=== PATIENT | male | born 1945 | race Caucasian/White ===

== ENCOUNTER 2016-10-25 16:11 | Inpatient (IN) | payer MEDICARE ==
--- NOTE | ~2016-10-25 | HP ---
History And Physical [id number] [place]. [address] NAME: ESTHER SOLIS : 43 STATUS : ADM IN [facility]#: [id number] AGE: 71 ADM/REG DATE : 10/25/16 MR#: [id number] REPORT SERV DATE: 10/25/16 DICTATED BY: CHANCE HERNANDEZ DATE: 10/25/16 REPORT STATUS : Draft TRANSCRIBED BY: MODL DATE: 10/25/16 DATE OF ADMISSION: 10/25/2016 REASON FOR ADMISSION: Acute myocardial infarction. HISTORY OF PRESENT ILLNESS: Mr. Solis is a 71-year-old male who presented to [facility] ED with a chief complaint of chest discomfort that started at 9 a.m. and was noted to have an EKG suggestive of evolving anterior WA. Code STEMI was activated and the case was briefly discussed with the ER physician. Based on the clinical description of the EKG and the patient's presentation, we decided to send the patient to the orthodontic lab technician emergently for cardiac catheterization. I briefly met the patient, examined him on the table prior to the procedure. He reports 4/10 chest pain. He has no history of cardiovascular disease and does not receive regular medical care. He reports question chest pain since 9 a.m. this morning, waxing and waning, progressive over the course of the day prompting to seek evaluation. PAST MEDICAL HISTORY: Denies prior hospitalizations or surgeries. SOCIAL HISTORY: Does smoke tobacco. MEDICATIONS: Denies. ALLERGIES: DENIES. FAMILY HISTORY: Noncontributory. SOCIAL HISTORY: The patient smokes. He denies alcohol or illicits. REVIEW OF SYSTEMS: Per HPI. Otherwise, negative. PHYSICAL EXAMINATION: VITAL SIGNS: Heart rate in the 80s, blood pressure upon arrival 150/80, temperature 97.8. GENERAL: Thin male, in no apparent distress. Speech is nonlabored. HEENT: Sclerae anicteric. Mucous members are moist. NECK: Supple. CARDIOVASCULAR: Tachycardic. No murmurs are present. PULMONARY: Clear to auscultation bilaterally. ABDOMEN: Soft, nondistended, nontender. EXTREMITIES: Warm no edema. LABS: Pending at the time of dictation. EKG demonstrates sinus rhythm, rate 63, ST elevations in V2 through V4. V3 is in excess of [address] depressions inferiorly. No prior EKG for comparison. History And Physical [address] [address] NAME: ESTHER SOLIS : 43 STATUS : ADM IN PAT#: [id number] AGE: 71 ADM/REG DATE : 10/25/16 MR#: [id number] REPORT SERV DATE: 10/25/16 DICTATED BY: CHANCE HERNANDEZ DATE: 10/25/16 REPORT STATUS : Draft TRANSCRIBED BY: SATURNINO DATE: 10/25/16 IMPRESSION/RECOMMENDATIONS: Acute anterior myocardial infarction: The patient will undergo emergent cardiac catheterization. I briefly discussed the risks, benefits, and alternatives and he understands these and agrees to proceed. We will perform this via the femoral approach. Further recommendations forthcoming pending initial clinical course. TIARRA/SATURNINO Chance Hernandez MD / [id number] CC: Chance Hernandez MD
--- NOTE | ~2016-10-25 | CN ---
Consultation Report [facility] [address] [place]. [address] NAME: ESTHER SOLIS : 43 STATUS : ADM IN [facility]#: [id number] AGE: 71 ADM/REG DATE : 10/25/16 MR#: [id number] REPORT SERV DATE: 10/26/16 DICTATED BY: SOL BERG DATE: 10/26/16 REPORT STATUS : Draft TRANSCRIBED BY: MODL DATE: 10/26/16 NEUROLOGICAL CONSULTATION-CODE STROKE DATE OF CONSULTATION: 10/26/2016 Critical care total time 90 minutes. HISTORY OF PRESENT ILLNESS: This is a 71-year-old white male. The patient in the CCU bed 1 who suffered respiratory arrest. Code stroke was called since the patient prior to having respiratory difficulty was lethargic and confused. The patient was noted to have systolic blood pressure of 80 and 90 and having episodes of sudden apnea and becoming cyanotic. Code blue was called. The patient apparently never lost his pulse as a part of code blue response. He was intubated by Dr. Cruz. A 16-gauge left external jugular IV line was inserted. The patient was observed by me during the intubation process. The patient was moving all 4 extremity and was attempting to resist nurses trying to calm him down and restrain him. The patient's lower systolic blood pressure was 84. PAST MEDICAL HISTORY: Significant for history of STEMI, which occurred yesterday. The patient had a cardiac catheterization yesterday. SOCIAL HISTORY: The patient has history of chronic tobacco abuse. There is no evidence of alcohol abuse at this time. FAMILY HISTORY: Could not be obtained from the patient since he was unresponsive. No information was present in the patient's chart. ALLERGIES: NO KNOWN ALLERGIES. REVIEW OF SYSTEMS: This could not be performed in view of the patient's altered mental status and sedation for intubation. PHYSICAL EXAMINATION: GENERAL: General physical examination prior to intubation showed him to be thin but not emaciated, was in acute distress during the process of intubation. The patient was sedated and intubated, was taken to the CT scanner. During the CT scanning, the patient's blood pressure was 85 systolic. His Levophed infusion was increased so were his IV fluids. CT scan of the head showed no evidence of acute changes. A small amount of mild microvascular changes was observed. CTA of the neck and brain showed no evidence of significant occlusive disease or clots. CTA of the chest was performed to rule out pulmonary embolism which was negative. A comment was made by Dr. Lawler from Radiology about the aortic arch being slightly enlarged (?) borderline aneurysmal. The patients oxygen saturation was 100% at the time of scanning. HEENT: The patient was normocephalic, did not show signs of trauma. Pupils were small, equal, reactive to light at the time of his intubation. The neck showed no evidence of significant abnormalities except for slightly dilated jugular veins. Consultation Report [facility] [address] [facility] [place]. [address] NAME: ESTHER SOLIS : 43 STATUS : ADM IN [facility]#: [id number] AGE: 71 ADM/REG DATE : 10/25/16 MR#: [id number] REPORT SERV DATE: 10/26/16 DICTATED BY: SOL BERG DATE: 10/26/16 REPORT STATUS : Draft TRANSCRIBED BY: SATURNINO DATE: 10/26/16 Neurological exam was difficult to perform since the patient was sedated with propofol. Prior to intubation, the patient was moving all four extremities. NIH scale on this patient was difficult to perform in view of sedation, although patient has an increased risk for cerebrovascular accident in view of his coronary artery disease, at this time, it appears that the patient's episode was triggered by cardiopulmonary causes. No acute abnormalities were noted on CT scan. Neurology will follow the patient alongside Cardiology and intensive care providers. IMPRESSION: Cardiopulmonary arrest, status post STEMI, cardiovascular disease. At present, no evidence of acute hemorrhagic infarction, however, could not rule out an acute stroke. Recommend to follow stroke orders in addition to STEMI orders. Maintain blood pressure at 141/50 systolic range. Avoid precipitous drops in systolic blood pressure below 110 level if patient is normally normotensive. If the patient's baseline suggest higher blood pressure, would try to maintain the patient's systolic blood pressure and 141/60 systolic range. Continue aspirin and Plavix. DVT prophylaxis. MRI and MRA of the brain extubated. Evaluate stroke risk factors. Continue stroke education for the patient and family once patient is more alert. Thank you for allowing us to participate in this patient's care. JAMES/SATURNINO Sol Berg MD / [id number] CC: Chance Hernandez MD
--- NOTE | ~2016-10-25 | DS ---
Discharge Summary [facility] [address] [place]. [address] NAME: ESTHER SOLIS : 43 STATUS : DIS IN PAT#: [id number] AGE: 71 ADM/REG DATE : 10/25/16 MR#: [id number] REPORT SERV DATE: 11/10/16 DICTATED BY: CHANCE HERNANDEZ DATE: 11/10/16 REPORT STATUS : Draft TRANSCRIBED BY: STAURNINO DATE: 11/10/16 Data Collection from hospitalization DISCHARGE DIAGNOSES: 1. ST-elevation myocardial infarction - acute. 2. Heart failure - systolic - acute/chronic. 3. Coronary artery disease. 4. Tobacco use. CONSULTATIONS: 1. Aye Cruz MD. 2. Sol Berg MD. 3. GABRIELE Luna. PROCEDURES PERFORMED: 1. Cardiac catheterization and percutaneous coronary intervention on 10/25/2016. 2. Intubation on 10/26/2016. 3. Head CT - stroke protocol on 10/26/2016. 4. CTA of the neck/brain stroke protocol, CTA of the chest on 10/26/2016. MEDICATIONS: Aspirin 81 mg daily, Lipitor 40 mg at bedtime, Coreg 3.125 mg twice a day, Habitrol 21 mg topically daily, nitroglycerin 0.4 mg sublingually as needed, Protonix 40 mg before breakfast and supper, and Brilinta 90 mg twice a day. CONDITION AT DISCHARGE: Stable. DISPOSITION: The patient was discharged home to be followed by home health care on a low- sodium, low-cholesterol, cardiac diet with activities as instructed. He would follow up with me on 12/09/2016 and would follow up with the GI physician as instructed. He would follow up with his primary care provider on 11/18/2016. HOSPITAL COURSE: This is a 71-year-old man who presented to the [facility] Emergency Department with chief complaint of chest discomfort that started at 9:00 a.m. and was found to have an EKG suggestive of evolving anterior myocardial infarction. Code STEMI was activated and the case was briefly discussed with the emergency room physician. Based on the clinical description of the EKG and the patient's presentation, it was felt that the patient would need to undergo emergent cardiac catheterization. He was felt to have had an acute myocardial infarction. He was admitted to the hospital for further evaluation and treatment. Upon admission, he was taken to the cardiac lab tester where he underwent the above-mentioned procedure. He tolerated this well, and there were no complications. The following day, the patient was seen by Dr. Aye Cruz regarding acute hypoxemic respiratory failure. He had been observed by the nurse to become more lethargic with an altered mental status. He was somewhat apneic. A Code Blue was called, although it sounds like he never actually lost his pulse, and as part of the Code Blue Response, he was intubated and a 16-gauge left external jugular intravenous line was inserted. He was somewhat groggy prior to intubation, but was moving all four extremities. He was attempting to resist the nurses restraining him. His Discharge Summary [address] [address] NAME: ESTHER SOLIS : 43 STATUS : DIS IN PAT#: [id number] AGE: 71 ADM/REG DATE : 10/25/16 MR#: [id number] REPORT SERV DATE: 11/10/16 DICTATED BY: CHANCE HERNANDEZ DATE: 11/10/16 REPORT STATUS : Draft TRANSCRIBED BY: SATURNINO DATE: 11/10/16 lowest blood pressure was [address] Cruz's examination. Dr. Cruz was asked to assist with management of his respiratory failure. Troponin on admission was 17 and increased to 127 following the code event. His chest x-ray showed no focal consolidations or effusions. His endotracheal tube was slightly high and was advanced 3 cm after review of the film. KUB showed a renal stone that was small and the NG tube with tip just below the GE junction. This was advanced 10 to 15 cm following review of the film. EKG showed ST changes consistent with those on the day of admission. He was going to be assessed for aortic dissection or pulmonary embolus. Head CT - stroke protocol was performed as well as a CTA of the neck/brain and CTA of the chest. The patient was also seen by Dr. Sol Berg. At present, there was no evidence of acute hemorrhagic infarction, however, we could not rule out an acute stroke. It was recommended that stroke orders be followed in addition to STEMI orders. We would try to maintain blood pressure in the 141/50 systolic range and avoid precipitous drops in systolic blood pressure below 110 level if the patient is normally normotensive. If the patient's baseline suggest higher blood pressure, we would try to maintain the patient's systolic blood pressure around 141/60 systolic range. Aspirin and Plavix were continued for DVT prophylaxis. Stroke education would be continued for the patient and his family once he was more alert. Coreg was increased. Repeat echocardiogram was performed. On 10/27/2016, chest x-ray showed no airspace disease. Coreg and DARLEEN inhibitor were stopped. Jaylan-Synephrine was going to be weaned as tolerated. Diuresis would be performed as needed. Left ventricular ejection fraction was 35%. The CT and CTA were negative. On 10/28/2016, the patient has failed his breathing trial the day previously. His lungs were clear. Levophed drip was going to be added. Later that morning, he was extubated. White count was now 19.5. Nasal O2 was being weaned. We would deescalate his antibiotics treatment rapidly if his cultures remained negative. He was evaluated by Physical Therapy. He remained successfully extubated. He was improving clinically. He was still on Jaylan- Synephrine. Blood pressure remained borderline. He had no complaints. He was evaluated by Occupational Therapy. On 10/30/2016, he had some sundowning and agitation. Low-dose beta-darryl was started. He had three bloody stools. He had decreased H and H. His blood pressure remained stable. IV proton pump inhibitor continued. Brilinta was continued. He was seen on 10/31/2016 by Stevenson Chong for evaluation and management of acute GI bleeding. The onset was around 2:00 a.m. He stood up to go to the restroom and had passage of bright red blood in the floor. The patient's daughter said this happened on two other occasions, the last time being 6:00 a.m. On admission, his hemoglobin level was 16.1 and it was now 11.2. He had received no blood transfusions. Creatinine was 1.13. Rectal exam revealed some old dried blood around the anus, however, no stool or blood in the rectal vault. He had no external or internal hemorrhoids palpated. He has never had any EGD or colonoscopy. He is a thin frail man which the daughter states he has been for all of his life. Other than heartburn and indigestion prior to his myocardial infarction, he has had no GI complaints of dysphagia, odynophagia, weight loss, melena, or hematochezia. There were presently no plans to perform EGD or colonoscopy at this time. If he were to bleed again, we would send for a stat tagged red blood cell scan with embolization. If positive, we would monitor his H and H. At the present time, he cannot be taken off his Brilinta nor his aspirin secondary to the risk of stent thrombosis. His daughter denies him to ever taking any NSAIDs products. Discharge Summary [facility] [address] [facility] [place]. [address] NAME: ESTHER SOLIS : 43 STATUS : DIS IN PAT#: [id number] AGE: 71 ADM/REG DATE : 10/25/16 MR#: [id number] REPORT SERV DATE: 11/10/16 DICTATED BY: CHANCE HERNANDEZ DATE: 11/10/16 REPORT STATUS : Draft TRANSCRIBED BY: SATURNINO DATE: 11/10/16 Proton pump inhibitor was continued as well as Anusol. He would be transfused as needed. On 11/01/2016, he passed a couple of more bloody bowel movements overnight, but the family refused to let him go to Radiology for tagged scan secondary to the patient receiving "dye" - i.e., radioactive material to tag his red blood cells. A long discussion was held with the patient's daughter regarding the tagged scan for continued bleeding. It was explained to the patient's daughter that the tagged scan was his best option to localize the source of bleeding. She seems to think the bleeding is over and he would not need it, but seems to be agreeable at the present time for a tagged scan if needed. The following day, he had no bleeding. His daughter said he had a normal bowel movement. He was changed to oral proton pump inhibitor. He was transfused one unit of blood. Discharge planning was performed. H and H remained stable. On 11/03/2016, he said he felt well. He had no bloody bowel movements. He had been restless at night. Discharge instructions were given. Due to his improved and stable condition, he was discharged home to be followed by home health care with the above-stated instructions. Information collected by: Shagufta Carrera I submit the above information as my discharge summary. AYAH/OSWALDOL Chance Hernandez MD / [id number] CC: Chance Hernandez MD Stevenson GABRIELE Chong
--- NOTE | ~2016-10-25 | CN ---
Consultation Report [facility] [address] [place]. [address] NAME: ESTHER SOLIS : 43 STATUS : ADM IN PAT#: [id number] AGE: 71 ADM/REG DATE : 10/25/16 MR#: [id number] REPORT SERV DATE: 10/31/16 DICTATED BY: JANET GARRETT DATE: 10/31/16 REPORT STATUS : Draft TRANSCRIBED BY: MODRafa DATE: 10/31/16 GI CONSULTATION DATE OF CONSULTATION: 10/31/2016 REASON FOR CONSULTATION: Evaluation and management of acute GI bleeding. HISTORY OF PRESENT ILLNESS: Mr. Solis is a 71-year-old male patient, who presented to [facility] on 08/24/2016 with a chief complaint of chest discomfort as well as nausea vomiting. The patient's daughter, who is present at the bedside states that his symptoms began on 10/23/2016 with indigestion type symptoms. When he began to have nausea and vomiting, which is typical for him, she brought in to [facility] for further evaluation. He was found to have EKG suggesting an anterior myocardial infarction. He underwent a code STEMI. He went to the laboratory equipment installer. He underwent PCI with drug-eluting stents placed x2 and has been on a regimen of Brilinta and aspirin since that time. He did suffer with acute hypoxemic respiratory failure, was on the ventilator for a period of time. He also suffered with altered mental status, toxic, metabolic, with stroke workup being negative. We were consulted to see him today secondary to GI bleeding, symptom onset was this morning around 2 a.m. per the daughter. He stood up to go to the restroom and had passage of bright red blood in the floor. She states that this happened on two other occasions, the last time being 6 o'clock this morning. Hemoglobin on admission was 16.1, presently it is 11.2. He has received no blood transfusions. His BUN is 17 with a creatinine of 1.13. Rectal exam done by myself with the daughter at the bedside revealed some old dried blood around the anus, however, no stool or blood in the rectal vault. No external or internal hemorrhoids were palpated. He has no pertinent GI history. He has never had an EGD or colonoscopy. He is a thin and frail man, which the daughter states he has been for all of his life. Other than the heartburn and indigestion that he experienced prior to his [place], he has had no GI complaints of dysphagia, odynophagia, weight loss, melena, or hematochezia. I have discussed with them. Presently, no plans to perform EGD or colonoscopy. If he bleeds again, we will send for a stat tagged red blood cell scan with embolization. If positive, we will monitor his H and H. At present, he cannot be taken off his Brilinta nor his aspirin secondary to risk of stent thrombosis. The patient's daughter denies him ever taking any NSAID products. PAST MEDICAL HISTORY: Positive for STEMI, tobacco abuse since the age of [age] years old. No other medical history per the daughter or per the patient. SOCIAL HISTORY: Positive tobacco. Roughly a pack per day for the last 60 years. No illicit drugs. No alcohol use. FAMILY HISTORY: Noncontributory from a GI standpoint. ALLERGIES: HE HAS NO KNOWN ALLERGIES. Consultation Report [address] [place]. [address] NAME: ESTHER SOLIS : 43 STATUS : ADM IN PAT#: [id number] AGE: 71 ADM/REG DATE : 10/25/16 MR#: [id number] REPORT SERV DATE: 10/31/16 DICTATED BY: JANET GARRETT DATE: 10/31/16 REPORT STATUS : Draft TRANSCRIBED BY: SATURNINO DATE: 10/31/16 HOME MEDICATIONS: On admission were negative. He denies any. REVIEW OF SYSTEMS: A 10-point review of systems was obtained. Pertinent positives addressed in the history of present illness. PERTINENT LABORATORY DATA: Sodium 139, potassium 4.2, BUN 17, creatinine 1.33. White count 6.2, hemoglobin 11.2, hematocrit 32.3, and platelet count of 180. INR of 1.2. PHYSICAL EXAMINATION: VITAL SIGNS: Temperature 97.8, pulse 84, respirations 18, blood pressure 102/72. NEUROLOGIC: Reveals an alert, slow to answer but answers appropriately to all questions asked. male, resting in bed. GENERAL: He is cooperative. He is in no apparent distress. He is awake and oriented. He is thin framed. NECK: No JVD. No palpable nodes. SKIN: Warm, dry, and intact. LUNGS: Diminished and coarse with normal respiratory effort exhibited. CARDIOVASCULAR SYSTEM: Regular rate and rhythm. ABDOMEN: Soft, flat, nontender. Active bowel sounds in all four quadrants. EXTREMITIES: No edema. Normal distal pulses. SKIN: Warm, dry, and intact. RECTAL EXAM: Dry blood around the anus. No blood or stool in the rectal vault. No internal or external hemorrhoids palpated. Palpable rectal mass not felt. ASSESSMENT: 1. Acute lower GI bleeding. Question if this is diverticular in nature. He has had three past history of bright red blood between the hours of 2 a.m. and 6 a.m. on 10/31/2016. 2. Status post acute anterior ST segment elevation myocardial infarction, status post drug- eluting stent x2, on Brilinta and aspirin. 3. Ischemic cardiomyopathy with ejection fraction of 35%. 4. Status post acute hypoxic respiratory failure, ventilator dependent for a period of time. PLAN: 1. PPI. 2. Anusol. 3. Monitor H and H, transfuse if needed. 4. Red blood cells tagged scan with embolization/treatment. If positive, we will follow. DG/MODL [place] Consultation Report [address] [place]. [address] NAME: ESTHER SOLIS : 43 STATUS : ADM IN [facility]#: [id number] AGE: 71 ADM/REG DATE : 10/25/16 MR#: [id number] REPORT SERV DATE: 10/31/16 DICTATED BY: JANET GARRETT DATE: 10/31/16 REPORT STATUS : Draft TRANSCRIBED BY: MODL DATE: 10/31/16 GABRIELE Chong / [id number] CC: Chance Hernandez MD
--- NOTE | ~2016-10-25 | OP ---
Record Of Operation [facility] [address] [place]. [address] NAME: ESTHER SOLIS : 43 STATUS : ADM IN [facility]#: [id number] AGE: 71 ADM/REG DATE : 10/25/16 MR#: [id number] REPORT SERV DATE: 10/26/16 DICTATED BY: CHRISTINA GONZALES DATE: 10/26/16 REPORT STATUS : Draft TRANSCRIBED BY: MODL DATE: 10/26/16 DATE OF PROCEDURE: 10/26/2016 REPORT TITLE: Intubation Note BODY AFTER REPORT TITLE: REASON FOR INTUBATION: Apnea and hypoxemic respiratory failure. PROCEDURE IN DETAIL: During code blue, Mr. Solis was intubated. A #3 MAC blade was used, and he was premedicated with 20 mg of etomidate, 50 mg of rocuronium, 5 mL of propofol and subsequently a #8 ET tube was passed into his vocal cords under direct visualization with cricoid pressure being applied. Following insertion of the endotracheal tube, there was satisfactory color change on the CO2 detector with condensation in the tube with bagging, bilateral breath sounds, and absent breath sounds over the fundus of the stomach. A followup chest x-ray, tube above the level of [place]. An OG tube was also inserted and advanced slightly after review of the chest x-ray. DELMER/SATURNINO Christina Gonzales MD / [id number] CC: Chance Hernandez MD
--- NOTE | ~2016-10-25 | CN ---
Consultation Report [facility] [address] [place]. [address] NAME: ESTHER SOLIS : [birth year] STATUS : ADM IN [facility]#: [id number] AGE: 71 ADM/REG DATE : 10/25/16 MR#: [id number] REPORT SERV DATE: 10/26/16 DICTATED BY: CHRISTINA GONZALES DATE: 10/26/16 REPORT STATUS : Draft TRANSCRIBED BY: MODL DATE: 10/26/16 PULMONARY AND CRITICAL CARE CONSULTATION DATE OF CONSULTATION: 10/26/2016 REASON FOR CONSULTATION: Acute hypoxemic respiratory failure. HISTORY OF PRESENT ILLNESS: Mr. Solis is a 71-year-old gentleman, admitted to Dr. Hernandez from [facility] as a STEMI. He has been in CCU bed 1 after having a left heart catheterization. He was observed by his nurse to become more lethargic with altered mental status, and he was also noted to be somewhat apneic. A code blue was called, although it sounds like he never actually lost his pulse and as part of the code blue response, he was intubated and a 16- gauge left external jugular intravenous line was inserted. He was somewhat groggy prior to intubation, but was moving all four extremities and is attempting to resist the nurses restraining him. His lowest blood pressure was 84 systolic on my examination. We have been asked to assist with management of his respiratory failure and to sort out what took place. PAST MEDICAL HISTORY: STEMI yesterday and tobacco abuse. Otherwise, he denies prior hospitalizations or surgeries according to his previous records. SOCIAL HISTORY: He does smoke tobacco. No additional social history is available at this time. FAMILY HISTORY: Noncontributory. ALLERGIES: NONE. HOME MEDICATIONS: None. REVIEW OF SYSTEMS: Limited due to the fact that the patient was intubated and no family was available. PHYSICAL EXAMINATION: GENERAL: A thin gentleman, in acute respiratory distress prior to intubation. VITAL SIGNS: Blood pressure is 85 systolic, heart rate was 88, afebrile, oxygen saturation was 100% with supplemental oxygen 100% being applied to him. HEENT: Head is atraumatic and normocephalic. Pupils are equal, round, and sluggishly reactive to light. Ears, nose, and mouth are unremarkable, except for poor oral dentition and somewhat dry oral mucosa. NECK: With some dilated jugular veins to the level of sternocleidomastoid muscle. CHEST: Symmetric and hyperexpanded, consistent with mild COPD. He has diminished breath sounds bilaterally, but no crackles at the bases. CARDIAC: Heart sounds are within normal limits. He has no murmur, rub or gallop, although Consultation Report [facility] [id number] [place]. [address] NAME: ESTHER SOLIS : 43 STATUS : ADM IN PAT#: [id number] AGE: 71 ADM/REG DATE : 10/25/16 MR#: [id number] REPORT SERV DATE: 10/26/16 DICTATED BY: CHRISTINA GONZALES DATE: 10/26/16 REPORT STATUS : Draft TRANSCRIBED BY: SATURNINO DATE: 10/26/[address] changes noted on the monitor which sound like they were present yesterday following his STEMI. ABDOMEN: Scaphoid, soft, nontender, nondistended with positive bowel sounds in all four quadrants and no appreciable peritoneal signs. : A May catheter is indwelling and draining a small amount of translucent yellow urine. EXTREMITIES: Without clubbing, cyanosis, or edema. SKIN: Warm and dry with some excoriations on the arms and hematomas from recent phlebotomy and medication administration. NEUROLOGIC: He is sluggishly reactive, but does not follow commands. He non-purposefully moves all four extremities without difficulty and is reaching for his endotracheal tube after insertion. PSYCHIATRIC: Unable to assess. DATA: Personal review of diagnostic workup completed today: His white blood cell count is 9.7, he has normal hemoglobin and hematocrit and normal differential, platelet count is adequate at 164. Metabolic profile is significant for mild hyponatremia, otherwise unremarkable electrolytes. His carbon dioxide is 22. Renal function is normal at 13 and 0.99 and his glucose level is 108, calcium is 8.3. Lipid panel was reviewed and his LDL is 94. ALT is 104. CPK is 4879. A troponin on admission was 17 and increased to 127 today following his code event. A chest x-ray shot after intubation shows hyperinflated lungs with no focal consolidations or effusions. His endotracheal tube is slightly high and was advanced 3 cm after review of the film. KUB shows one small renal stone and NG tube with the tip just below the GE junction. It was advanced 10 to 15 cm following review of the film. An EKG shows ST changes consistent with those yesterday following his STEMI. An echocardiogram was performed and shows EF around 35% with decreased LV systolic function and anteroseptal and inferoseptal hypocontractility from the mid ventricle to the apex and a dyskinetic apex. There was also a dynamic LVOT obstruction due to hyperdynamic basal LV and KESHA. RV is normal in systolic function, and the PA pressure was not commented on. IMPRESSION: 1. Acute hypoxemic respiratory failure with marked apnea, status post intubation on 10/26/2016, please see my separate dictation of that procedure. 2. ST-elevation myocardial infarction with question of cardiogenic shock, now requiring Levophed for hemodynamic support. 3. History of tobacco abuse. 4. Mild leukocytosis. 5. Suspected mild chronic kidney disease, but without any additional medical history. PLAN: We have intubated Mr. Solis, and he is being moved to the CT scanner to assess for an aortic dissection or pulmonary embolus by his primary team as he had some altered mental status just in advance of his period of apnea requiring intubation. The Neurology Service has also been consulted and will be performing a CTA of the head and neck to exclude CVA or other intracranial pathology. We will follow up on those results and continue to provide vent and hemodynamic support with Levophed in the interim. We will continue to monitor him closely and make adjustments to his regimen as clinically warranted. Consultation Report [address] [place]. [address] NAME: ESTHER SOLIS : 43 STATUS : ADM IN [facility]#: [id number] AGE: 71 ADM/REG DATE : 10/25/16 MR#: [id number] REPORT SERV DATE: 10/26/16 DICTATED BY: CHRISTINA GONZALES DATE: 10/26/16 REPORT STATUS : Draft TRANSCRIBED BY: SATURNINO DATE: 10/26/16 DELMER/SATURNINO Christina Gonzales MD / [id number] CC: Chance Hernandez MD
[2016-10-25] MEDS ORDERED: *DENIES (16:22)
[2016-10-25 16:30] LABS: BASOPHILS 0.2 %; BASOPHILS ABSOLUTE 0.02 10/3/uL (0.0-0.16); EOSINOPHILS 0.2 %; EOSINOPHILS ABSOLUTE 0.02 10/3/uL (0.0-0.53); HEMATOCRIT 45.4 % (40.0-51.0); HEMOGLOBIN 16.1 g/dL (13.6-17.8); IMMATURE GRANULOCYTES 0.5 %; IMMATURE GRANULOCYTES ABSOLUTE 0.06 10/3/uL (0.0-0.11); LYMPHOCYTES 12.7 %; LYMPHOCYTES ABSOLUTE 1.48 10/3/uL (0.67-4.30); MANUAL DIFF NO %; MEAN CORPUS HGB CONC 35.5 g/dL (32.0-36.0); MEAN CORPUSCULAR HEMOGLOB 31.4 pg (26.0-34.0); MEAN CORPUSCULAR VOLUME 88.5 fL (80-100); MEAN PLATELET VOLUME 8.8 fL (9.2-13.0); MONOCYTES ABSOLUTE 0.82 10/3/uL (0.21-1.20); NEUTROPHILS 79.4 %; NEUTROPHILS ABSOLUTE 9.24 10/3/uL (2.02-8.40); PLATELET COUNT 198 10/3/uL (150-400); RBC DISTRIBUTION WIDTH 12.4 % (12.0-16.0); RED CELL COUNT 5.13 10/6/uL (4.7-6.1); WHITE BLOOD CELLS 11.6 10/3/uL (4.5-10.5)
[2016-10-25 16:37] LABS: INTERNATIONAL NORMAL RATI 1.2 UNITS (-); PARTIAL THROMBO TIME 29.4 SEC (22.5-37.2); PROTIME (NOT ORD) 14.7 SEC (12.0-14.5)
[2016-10-25 16:45] LABS: BUN (BLOOD UREA NITROGEN) 15 MG/DL (6-23); CHLORIDE, SERUM 94 MMOL/L (96-112); CO2 (CARBON DIOXIDE) 29 MMOL/L (24-34); CREATININE 1.19 MG/DL (0.70-1.30); GFR AFRICAN AMERICAN 70 ML/MIN (>=60); GFR NON AFRICAN AMERICAN 61 ML/MIN (>=60); GLUCOSE, SERUM 130 MG/DL (60-99); POTASSIUM, SERUM 3.9 MMOL/L (3.5-5.3); SODIUM, SERUM 133 MMOL/L (135-148)
[2016-10-25 16:46] LABS: CHEST PAIN PROFILE TAT 0 Hrs 20 Mins
[2016-10-25 19:41] LABS: CK-MB 55.8 NG/ML; CKMB INDEX (NOT ORD) 4.1; CPK 1347 U/L (0-200)
[2016-10-26 04:56] LABS: BASOPHILS 0.2 %; BASOPHILS ABSOLUTE 0.02 10/3/uL (0.0-0.16); EOSINOPHILS 0.2 %; EOSINOPHILS ABSOLUTE 0.02 10/3/uL (0.0-0.53); HEMATOCRIT 42.9 % (40.0-51.0); HEMOGLOBIN 14.7 g/dL (13.6-17.8); IMMATURE GRANULOCYTES 0.3 %; IMMATURE GRANULOCYTES ABSOLUTE 0.03 10/3/uL (0.0-0.11); LYMPHOCYTES 23.6 %; LYMPHOCYTES ABSOLUTE 2.28 10/3/uL (0.67-4.30); MEAN CORPUS HGB CONC 34.3 g/dL (32.0-36.0); MEAN CORPUSCULAR HEMOGLOB 30.8 pg (26.0-34.0); MEAN CORPUSCULAR VOLUME 89.9 fL (80-100); MEAN PLATELET VOLUME 8.6 fL (9.2-13.0); MONOCYTES 13.6 %; MONOCYTES ABSOLUTE 1.31 10/3/uL (0.21-1.20); NEUTROPHILS 62.1 %; NEUTROPHILS ABSOLUTE 5.99 10/3/uL (2.02-8.40); PLATELET COUNT 164 10/3/uL (150-400); RBC DISTRIBUTION WIDTH 12.8 % (12.0-16.0); RED CELL COUNT 4.77 10/6/uL (4.7-6.1); WHITE BLOOD CELLS 9.7 10/3/uL (4.5-10.5)
[2016-10-26 04:57] LABS: MANUAL DIFF NO %
[2016-10-26 05:29] LABS: BUN (BLOOD UREA NITROGEN) 13 MG/DL (6-23); CALCIUM, SERUM 8.3 MG/DL (8.5-10.4); CHLORIDE, SERUM 97 MMOL/L (96-112); CHOL/HDL RATIO(NOT ORDER) 3.6 (0-5); CHOLESTEROL 155 MG/DL (< 200); CREATININE 0.99 MG/DL (0.70-1.30); GFR AFRICAN AMERICAN 88 ML/MIN (>=60); GFR NON AFRICAN AMERICAN 76 ML/MIN (>=60); GLUCOSE, SERUM 108 MG/DL (60-99); HDL CHOLESTEROL 43 MG/DL (> 39); LDL CHOLESTEROL 94 MG/DL (< 130); NON-HDL CHOLESTEROL 112 MG/DL (< 160); SGPT(ALT) 104 U/L (5-65); SODIUM, SERUM 133 MMOL/L (135-148); TRIGLYCERIDE 93 MG/DL (< 150)
[2016-10-26 05:33] LABS: CO2 (CARBON DIOXIDE) 22 MMOL/L (24-34); POTASSIUM, SERUM 4.1 MMOL/L (3.5-5.3)
[2016-10-26 06:43] LABS: CPK 4879 U/L (0-200)
[2016-10-26 14:04] LABS: CK-MB 73.1 NG/ML
[2016-10-26 14:06] LABS: CKMB INDEX (NOT ORD) 2.8
[2016-10-26 14:16] LABS: ALLENS TEST Pos; BE (BASE EXCESS) -2.3 MEQ/L (0 +/- 2.5); HCO3 (ACTUAL BICARBONATE) 24.7 MEQ/L (23-27); HEMOBLOGIN CONTENT 13.2 G/DL (14-18); INSTRUMENT SERIAL # 8087; METHEMOGLOBIN 0.4 % (0-3); O2 CONTENT 18.9 VOL% (18-24); OPERATOR ID 32214; PCO2 (CO2 TENSION) 51 MMHG (35-45); PO2 (O2 TENSION) 317 MMHG (79-93); SAMPLE Arterial; TIDAL VOLUME 380 ML
[2016-10-26 16:35] LABS: CK-MB 60.5 NG/ML
[2016-10-26 16:36] LABS: CKMB INDEX (NOT ORD) 2.3
[2016-10-26 22:42] LABS: HEMOGLOBIN 14.1 g/dL (13.6-17.8); MEAN CORPUS HGB CONC 34.4 g/dL (32.0-36.0); MEAN CORPUSCULAR HEMOGLOB 30.7 pg (26.0-34.0); MEAN CORPUSCULAR VOLUME 89.3 fL (80-100); PLATELET COUNT 178 10/3/uL (150-400); RBC DISTRIBUTION WIDTH 12.8 % (12.0-16.0); RED CELL COUNT 4.59 10/6/uL (4.7-6.1); WHITE BLOOD CELLS 11.7 10/3/uL (4.5-10.5)
[2016-10-26 22:43] LABS: MANUAL DIFF YES %
[2016-10-26 23:06] LABS: CK-MB 31.8 NG/ML
[2016-10-26 23:14] LABS: CKMB INDEX (NOT ORD) 1.6
[2016-10-26 23:58] LABS: BAND NEUTROPHILS 1 %; IMMATURE GRANS ABSOLUTE (CALC) 0.12 10/3/uL (0.0-0.11); LYMPHOCYTES 22 %; LYMPHOCYTES ABSOLUTE (CALC) 2.57 10/3/uL (0.67-4.30); METAMYELOCYTES 1 %; MONOCYTES 4 %; MONOCYTES ABSOLUTE (CALC) 0.47 10/3/uL (0.21-1.20); NEUTROPHILS ABSOLUTE (CALC) 8.54 10/3/uL (2.02-8.40); PLATELET ESTIMATE ADQ (ADEQUATE); RBC MORPHOLOGY NORM (NORMAL); SEGMENTED NEUTROPHIL (0) 72 %; TOTAL NUCLEATED CELLS 100
[2016-10-27 03:51] LABS: BASOPHILS 0.2 %; BASOPHILS ABSOLUTE 0.02 10/3/uL (0.0-0.16); EOSINOPHILS 0.2 %; EOSINOPHILS ABSOLUTE 0.03 10/3/uL (0.0-0.53); HEMATOCRIT 41.3 % (40.0-51.0); HEMOGLOBIN 14.1 g/dL (13.6-17.8); IMMATURE GRANULOCYTES 0.6 %; IMMATURE GRANULOCYTES ABSOLUTE 0.07 10/3/uL (0.0-0.11); LYMPHOCYTES 24.4 %; LYMPHOCYTES ABSOLUTE 2.98 10/3/uL (0.67-4.30); MEAN CORPUS HGB CONC 34.1 g/dL (32.0-36.0); MEAN CORPUSCULAR HEMOGLOB 29.8 pg (26.0-34.0); MEAN CORPUSCULAR VOLUME 87.3 fL (80-100); MEAN PLATELET VOLUME 8.9 fL (9.2-13.0); MONOCYTES 15.6 %; MONOCYTES ABSOLUTE 1.91 10/3/uL (0.21-1.20); NEUTROPHILS ABSOLUTE 7.22 10/3/uL (2.02-8.40); PLATELET COUNT 162 10/3/uL (150-400); RBC DISTRIBUTION WIDTH 12.9 % (12.0-16.0); RED CELL COUNT 4.73 10/6/uL (4.7-6.1); WHITE BLOOD CELLS 12.2 10/3/uL (4.5-10.5)
[2016-10-27 03:52] LABS: MANUAL DIFF NO %
[2016-10-27 04:03] LABS: INSTRUMENT SERIAL # 35151; pH 7.46 (7.37-7.43)
[2016-10-27 04:04] LABS: ALLENS TEST Pos; BE (BASE EXCESS) -0.4 MEQ/L (0 +/- 2.5); CARBOXYHEMOGLOBIN 0.4 % (0-3); HCO3 (ACTUAL BICARBONATE) 22.7 MEQ/L (23-27); HEMOBLOGIN CONTENT 14.3 G/DL (14-18); METHEMOGLOBIN 0.6 % (0-3); MODE CMV; O2 CONTENT 19.8 VOL% (18-24); PCO2 (CO2 TENSION) 33 MMHG (35-45); PO2 (O2 TENSION) 128 MMHG (79-93); SAMPLE Arterial; TIDAL VOLUME 380 ML
[2016-10-27 04:16] LABS: A/G RATIO 0.8 (0.7-1.9); ALBUMIN 2.8 G/DL (3.5-5.0); ALKALINE PHOSPHATASE 86 U/L (45-117); BUN (BLOOD UREA NITROGEN) 16 MG/DL (6-23); CALCIUM, SERUM 7.9 MG/DL (8.5-10.4); CHLORIDE, SERUM 95 MMOL/L (96-112); CO2 (CARBON DIOXIDE) 25 MMOL/L (24-34); CREATININE 1.05 MG/DL (0.70-1.30); GFR AFRICAN AMERICAN 82 ML/MIN (>=60); GFR NON AFRICAN AMERICAN 71 ML/MIN (>=60); GLOBULIN 3.4 G/DL (2.5-4.1); GLUCOSE, SERUM 105 MG/DL (60-99); POTASSIUM, SERUM 3.5 MMOL/L (3.5-5.3); SGOT(AST) 239 U/L (5-40); SGPT(ALT) 69 U/L (5-65); SODIUM, SERUM 129 MMOL/L (135-148); TOTAL BILIRUBIN 0.8 MG/DL (0-1.2); TOTAL PROTEIN 6.2 G/DL (6.0-8.5)
[2016-10-27 09:22] LABS: CK-MB 10.9 NG/ML; CKMB INDEX (NOT ORD) 0.8
[2016-10-27 11:05] LABS: PROCALCITONIN 0.4 ng/mL (<0.5)
[2016-10-28 04:17] LABS: BE (BASE EXCESS) -3.6 MEQ/L (0 +/- 2.5); HCO3 (ACTUAL BICARBONATE) 21.9 MEQ/L (23-27); HEMOBLOGIN CONTENT 14.8 G/DL (14-18); INSTRUMENT SERIAL # 8083; METHEMOGLOBIN 0.3 % (0-3); O2 CONTENT 20.3 VOL% (18-24); PCO2 (CO2 TENSION) 41 MMHG (35-45); PO2 (O2 TENSION) 109 MMHG (79-93); pH 7.34 (7.37-7.43)
[2016-10-28 04:18] LABS: ALLENS TEST Pos; MODE CMV; OPERATOR ID 14661; SAMPLE Arterial; TIDAL VOLUME 380 ML
[2016-10-28 04:37] LABS: BUN (BLOOD UREA NITROGEN) 15 MG/DL (6-23); CALCIUM, SERUM 8.3 MG/DL (8.5-10.4); CHLORIDE, SERUM 95 MMOL/L (96-112); CO2 (CARBON DIOXIDE) 27 MMOL/L (24-34); CREATININE 1.25 MG/DL (0.70-1.30); GFR AFRICAN AMERICAN 66 ML/MIN (>=60); GFR NON AFRICAN AMERICAN 57 ML/MIN (>=60); GLUCOSE, SERUM 97 MG/DL (60-99); POTASSIUM, SERUM 4.1 MMOL/L (3.5-5.3); SODIUM, SERUM 132 MMOL/L (135-148)
[2016-10-28 05:39] LABS: BASOPHILS 0.2 %; BASOPHILS ABSOLUTE 0.04 10/3/uL (0.0-0.16); EOSINOPHILS 0.1 %; EOSINOPHILS ABSOLUTE 0.01 10/3/uL (0.0-0.53); HEMATOCRIT 37.7 % (40.0-51.0); IMMATURE GRANULOCYTES 0.5 %; LYMPHOCYTES 13.2 %; LYMPHOCYTES ABSOLUTE 2.57 10/3/uL (0.67-4.30); MEAN CORPUS HGB CONC 34.5 g/dL (32.0-36.0); MEAN CORPUSCULAR HEMOGLOB 31.1 pg (26.0-34.0); MEAN PLATELET VOLUME 9.6 fL (9.2-13.0); MONOCYTES ABSOLUTE 2.72 10/3/uL (0.21-1.20); NEUTROPHILS ABSOLUTE 14.02 10/3/uL (2.02-8.40); PLATELET COUNT 194 10/3/uL (150-400); RED CELL COUNT 4.18 10/6/uL (4.7-6.1)
[2016-10-28 05:45] LABS: MANUAL DIFF NO %; MEAN CORPUSCULAR VOLUME 90.2 fL (80-100); WHITE BLOOD CELLS 19.5 10/3/uL (4.5-10.5)
[2016-10-29 04:04] LABS: BASOPHILS 0.3 %; BASOPHILS ABSOLUTE 0.03 10/3/uL (0.0-0.16); EOSINOPHILS 0.5 %; EOSINOPHILS ABSOLUTE 0.06 10/3/uL (0.0-0.53); HEMATOCRIT 34.5 % (40.0-51.0); HEMOGLOBIN 11.9 g/dL (13.6-17.8); IMMATURE GRANULOCYTES 0.3 %; IMMATURE GRANULOCYTES ABSOLUTE 0.03 10/3/uL (0.0-0.11); LYMPHOCYTES 12.3 %; LYMPHOCYTES ABSOLUTE 1.37 10/3/uL (0.67-4.30); MANUAL DIFF NO %; MEAN CORPUS HGB CONC 34.5 g/dL (32.0-36.0); MEAN CORPUSCULAR VOLUME 89.8 fL (80-100); MEAN PLATELET VOLUME 9.9 fL (9.2-13.0); MONOCYTES ABSOLUTE 1.45 10/3/uL (0.21-1.20); NEUTROPHILS 73.6 %; NEUTROPHILS ABSOLUTE 8.18 10/3/uL (2.02-8.40); PLATELET COUNT 158 10/3/uL (150-400); RBC DISTRIBUTION WIDTH 12.8 % (12.0-16.0); RED CELL COUNT 3.84 10/6/uL (4.7-6.1); WHITE BLOOD CELLS 11.1 10/3/uL (4.5-10.5)
[2016-10-29 04:31] LABS: CALCIUM, SERUM 8.3 MG/DL (8.5-10.4); CHLORIDE, SERUM 98 MMOL/L (96-112); CO2 (CARBON DIOXIDE) 26 MMOL/L (24-34); CREATININE 1.26 MG/DL (0.70-1.30); GFR AFRICAN AMERICAN 66 ML/MIN (>=60); GFR NON AFRICAN AMERICAN 57 ML/MIN (>=60); GLUCOSE, SERUM 93 MG/DL (60-99); POTASSIUM, SERUM 4.4 MMOL/L (3.5-5.3); SODIUM, SERUM 133 MMOL/L (135-148)
[2016-10-29 04:32] LABS: BUN (BLOOD UREA NITROGEN) 19 MG/DL (6-23)
[2016-10-30 03:43] LABS: BASOPHILS 0.1 %; BASOPHILS ABSOLUTE 0.01 10/3/uL (0.0-0.16); EOSINOPHILS 0.9 %; EOSINOPHILS ABSOLUTE 0.08 10/3/uL (0.0-0.53); HEMATOCRIT 34.6 % (40.0-51.0); HEMOGLOBIN 12.3 g/dL (13.6-17.8); IMMATURE GRANULOCYTES 0.5 %; IMMATURE GRANULOCYTES ABSOLUTE 0.04 10/3/uL (0.0-0.11); LYMPHOCYTES 12.9 %; LYMPHOCYTES ABSOLUTE 1.14 10/3/uL (0.67-4.30); MEAN CORPUS HGB CONC 35.5 g/dL (32.0-36.0); MEAN CORPUSCULAR HEMOGLOB 31.5 pg (26.0-34.0); MEAN CORPUSCULAR VOLUME 88.7 fL (80-100); MEAN PLATELET VOLUME 9.2 fL (9.2-13.0); MONOCYTES 10.5 %; MONOCYTES ABSOLUTE 0.93 10/3/uL (0.21-1.20); NEUTROPHILS 75.1 %; NEUTROPHILS ABSOLUTE 6.62 10/3/uL (2.02-8.40); PLATELET COUNT 181 10/3/uL (150-400); WHITE BLOOD CELLS 8.8 10/3/uL (4.5-10.5)
[2016-10-30 03:44] LABS: MANUAL DIFF NO %
[2016-10-30 03:54] LABS: BUN (BLOOD UREA NITROGEN) 17 MG/DL (6-23); CALCIUM, SERUM 8.2 MG/DL (8.5-10.4); CHLORIDE, SERUM 105 MMOL/L (96-112); CO2 (CARBON DIOXIDE) 26 MMOL/L (24-34); CREATININE 1.13 MG/DL (0.70-1.30); GFR AFRICAN AMERICAN 75 ML/MIN (>=60); GFR NON AFRICAN AMERICAN 65 ML/MIN (>=60); GLUCOSE, SERUM 107 MG/DL (60-99); POTASSIUM, SERUM 4.2 MMOL/L (3.5-5.3); SODIUM, SERUM 139 MMOL/L (135-148)
[2016-10-31 04:34] LABS: BASOPHILS 0.3 %; BASOPHILS ABSOLUTE 0.02 10/3/uL (0.0-0.16); EOSINOPHILS 1.2 %; EOSINOPHILS ABSOLUTE 0.08 10/3/uL (0.0-0.53); HEMATOCRIT 32.3 % (40.0-51.0); HEMOGLOBIN 11.2 g/dL (13.6-17.8); IMMATURE GRANULOCYTES 0.6 %; IMMATURE GRANULOCYTES ABSOLUTE 0.04 10/3/uL (0.0-0.11); LYMPHOCYTES 19.2 %; LYMPHOCYTES ABSOLUTE 1.29 10/3/uL (0.67-4.30); MEAN CORPUS HGB CONC 34.7 g/dL (32.0-36.0); MEAN CORPUSCULAR HEMOGLOB 30.9 pg (26.0-34.0); MEAN PLATELET VOLUME 9.2 fL (9.2-13.0); MONOCYTES 13.2 %; MONOCYTES ABSOLUTE 0.89 10/3/uL (0.21-1.20); NEUTROPHILS 65.5 %; PLATELET COUNT 180 10/3/uL (150-400); RED CELL COUNT 3.63 10/6/uL (4.7-6.1); WHITE BLOOD CELLS 6.7 10/3/uL (4.5-10.5)
[2016-10-31 04:39] LABS: MANUAL DIFF NO %
[2016-10-31 17:59] LABS: BASOPHILS 0.3 %; BASOPHILS ABSOLUTE 0.02 10/3/uL (0.0-0.16); EOSINOPHILS 1.2 %; EOSINOPHILS ABSOLUTE 0.08 10/3/uL (0.0-0.53); IMMATURE GRANULOCYTES ABSOLUTE 0.07 10/3/uL (0.0-0.11); LYMPHOCYTES 25.9 %; LYMPHOCYTES ABSOLUTE 1.76 10/3/uL (0.67-4.30); MEAN CORPUS HGB CONC 35.2 g/dL (32.0-36.0); MEAN CORPUSCULAR HEMOGLOB 31.1 pg (26.0-34.0); MEAN CORPUSCULAR VOLUME 88.3 fL (80-100); MEAN PLATELET VOLUME 9.1 fL (9.2-13.0); MONOCYTES ABSOLUTE 0.75 10/3/uL (0.21-1.20); NEUTROPHILS 60.6 %; NEUTROPHILS ABSOLUTE 4.11 10/3/uL (2.02-8.40); PLATELET COUNT 184 10/3/uL (150-400); RBC DISTRIBUTION WIDTH 13.2 % (12.0-16.0); WHITE BLOOD CELLS 6.8 10/3/uL (4.5-10.5)
[2016-10-31 18:00] LABS: HEMOGLOBIN 8.8 g/dL (13.6-17.8); MANUAL DIFF NO %; RED CELL COUNT 2.83 10/6/uL (4.7-6.1)
[2016-11-01 05:32] LABS: BASOPHILS 0.2 %; BASOPHILS ABSOLUTE 0.02 10/3/uL (0.0-0.16); EOSINOPHILS 1.1 %; HEMOGLOBIN 10.5 g/dL (13.6-17.8); IMMATURE GRANULOCYTES 0.9 %; IMMATURE GRANULOCYTES ABSOLUTE 0.08 10/3/uL (0.0-0.11); LYMPHOCYTES 23.8 %; LYMPHOCYTES ABSOLUTE 2.09 10/3/uL (0.67-4.30); MEAN CORPUSCULAR HEMOGLOB 30.3 pg (26.0-34.0); MEAN CORPUSCULAR VOLUME 86.7 fL (80-100); MEAN PLATELET VOLUME 8.9 fL (9.2-13.0); MONOCYTES 15.6 %; MONOCYTES ABSOLUTE 1.37 10/3/uL (0.21-1.20); NEUTROPHILS 58.4 %; NEUTROPHILS ABSOLUTE 5.11 10/3/uL (2.02-8.40); PLATELET COUNT 165 10/3/uL (150-400); RBC DISTRIBUTION WIDTH 13.7 % (12.0-16.0); WHITE BLOOD CELLS 8.8 10/3/uL (4.5-10.5)
[2016-11-01 05:33] LABS: HEMOGLOBIN 10.4 g/dL (13.6-17.8)
[2016-11-01 05:35] LABS: MANUAL DIFF NO %; RED CELL COUNT 3.46 10/6/uL (4.7-6.1)
[2016-11-01 05:36] LABS: HEMATOCRIT 29.5 % (40.0-51.0)
[2016-11-01 05:48] LABS: BUN (BLOOD UREA NITROGEN) 11 MG/DL (6-23); CALCIUM, SERUM 8.2 MG/DL (8.5-10.4); CHLORIDE, SERUM 109 MMOL/L (96-112); CO2 (CARBON DIOXIDE) 22 MMOL/L (24-34); CREATININE 0.88 MG/DL (0.70-1.30); GFR AFRICAN AMERICAN 99 ML/MIN (>=60); GFR NON AFRICAN AMERICAN 86 ML/MIN (>=60); GLUCOSE, SERUM 99 MG/DL (60-99); POTASSIUM, SERUM 3.3 MMOL/L (3.5-5.3); SODIUM, SERUM 141 MMOL/L (135-148)
[2016-11-01 11:36] LABS: HEMOGLOBIN 10.4 g/dL (13.6-17.8)
[2016-11-01 16:58] LABS: BASOPHILS 0.6 %; BASOPHILS ABSOLUTE 0.04 10/3/uL (0.0-0.16); EOSINOPHILS 1.4 %; EOSINOPHILS ABSOLUTE 0.09 10/3/uL (0.0-0.53); HEMATOCRIT 27.5 % (40.0-51.0); HEMOGLOBIN 9.7 g/dL (13.6-17.8); IMMATURE GRANULOCYTES 1.1 %; IMMATURE GRANULOCYTES ABSOLUTE 0.07 10/3/uL (0.0-0.11); LYMPHOCYTES 25.1 %; MEAN CORPUS HGB CONC 35.3 g/dL (32.0-36.0); MEAN CORPUSCULAR HEMOGLOB 30.3 pg (26.0-34.0); MEAN CORPUSCULAR VOLUME 85.9 fL (80-100); MEAN PLATELET VOLUME 9.2 fL (9.2-13.0); MONOCYTES 14.9 %; MONOCYTES ABSOLUTE 0.95 10/3/uL (0.21-1.20); NEUTROPHILS 56.9 %; NEUTROPHILS ABSOLUTE 3.62 10/3/uL (2.02-8.40); PLATELET COUNT 192 10/3/uL (150-400); WHITE BLOOD CELLS 6.4 10/3/uL (4.5-10.5)
[2016-11-01 16:59] LABS: MANUAL DIFF NO %
[2016-11-01 23:04] LABS: HEMATOCRIT 28.5 % (40.0-51.0); HEMOGLOBIN 9.8 g/dL (13.6-17.8)
[2016-11-02 06:25] LABS: BASOPHILS 0.4 %; BASOPHILS ABSOLUTE 0.03 10/3/uL (0.0-0.16); EOSINOPHILS 1.6 %; EOSINOPHILS ABSOLUTE 0.12 10/3/uL (0.0-0.53); HEMATOCRIT 28.1 % (40.0-51.0); HEMOGLOBIN 9.8 g/dL (13.6-17.8); IMMATURE GRANULOCYTES 2.2 %; IMMATURE GRANULOCYTES ABSOLUTE 0.16 10/3/uL (0.0-0.11); LYMPHOCYTES 27.7 %; LYMPHOCYTES ABSOLUTE 2.04 10/3/uL (0.67-4.30); MANUAL DIFF NO %; MEAN CORPUS HGB CONC 34.9 g/dL (32.0-36.0); MEAN CORPUSCULAR HEMOGLOB 30.7 pg (26.0-34.0); MEAN CORPUSCULAR VOLUME 88.1 fL (80-100); MEAN PLATELET VOLUME 9.2 fL (9.2-13.0); MONOCYTES ABSOLUTE 0.96 10/3/uL (0.21-1.20); NEUTROPHILS 55.1 %; NEUTROPHILS ABSOLUTE 4.06 10/3/uL (2.02-8.40); PLATELET COUNT 195 10/3/uL (150-400); RBC DISTRIBUTION WIDTH 13.6 % (12.0-16.0); RED CELL COUNT 3.19 10/6/uL (4.7-6.1); WHITE BLOOD CELLS 7.4 10/3/uL (4.5-10.5)
[2016-11-02 06:37] LABS: BUN (BLOOD UREA NITROGEN) 12 MG/DL (6-23); CALCIUM, SERUM 8.3 MG/DL (8.5-10.4); CHLORIDE, SERUM 105 MMOL/L (96-112); CO2 (CARBON DIOXIDE) 23 MMOL/L (24-34); CREATININE 0.83 MG/DL (0.70-1.30); GFR AFRICAN AMERICAN 102 ML/MIN (>=60); GFR NON AFRICAN AMERICAN 88 ML/MIN (>=60); GLUCOSE, SERUM 119 MG/DL (60-99); POTASSIUM, SERUM 3.7 MMOL/L (3.5-5.3); SODIUM, SERUM 139 MMOL/L (135-148)
[2016-11-02 12:13] LABS: HEMATOCRIT 31.9 % (40.0-51.0)
[2016-11-02 17:19] LABS: BASOPHILS 0.3 %; BASOPHILS ABSOLUTE 0.02 10/3/uL (0.0-0.16); EOSINOPHILS 2.3 %; EOSINOPHILS ABSOLUTE 0.16 10/3/uL (0.0-0.53); HEMATOCRIT 29.7 % (40.0-51.0); HEMOGLOBIN 10.2 g/dL (13.6-17.8); IMMATURE GRANULOCYTES 2.3 %; IMMATURE GRANULOCYTES ABSOLUTE 0.16 10/3/uL (0.0-0.11); LYMPHOCYTES 27.4 %; LYMPHOCYTES ABSOLUTE 1.91 10/3/uL (0.67-4.30); MEAN CORPUS HGB CONC 34.3 g/dL (32.0-36.0); MEAN CORPUSCULAR HEMOGLOB 30.3 pg (26.0-34.0); MEAN CORPUSCULAR VOLUME 88.1 fL (80-100); MEAN PLATELET VOLUME 9.3 fL (9.2-13.0); MONOCYTES 17.1 %; MONOCYTES ABSOLUTE 1.19 10/3/uL (0.21-1.20); NEUTROPHILS 50.6 %; NEUTROPHILS ABSOLUTE 3.52 10/3/uL (2.02-8.40); PLATELET COUNT 230 10/3/uL (150-400); RBC DISTRIBUTION WIDTH 13.6 % (12.0-16.0); RED CELL COUNT 3.37 10/6/uL (4.7-6.1)
[2016-11-02 17:27] LABS: MANUAL DIFF NO %
[2016-11-02 23:25] LABS: HEMATOCRIT 28.5 % (40.0-51.0); HEMOGLOBIN 9.3 g/dL (13.6-17.8)
[2016-11-03 06:41] LABS: HEMATOCRIT 28.4 % (40.0-51.0); HEMOGLOBIN 9.6 g/dL (13.6-17.8)
[2016-11-03 06:57] LABS: BUN (BLOOD UREA NITROGEN) 13 MG/DL (6-23); CALCIUM, SERUM 8.1 MG/DL (8.5-10.4); CHLORIDE, SERUM 104 MMOL/L (96-112); CO2 (CARBON DIOXIDE) 25 MMOL/L (24-34); CREATININE 0.96 MG/DL (0.70-1.30); GFR AFRICAN AMERICAN 91 ML/MIN (>=60); GFR NON AFRICAN AMERICAN 79 ML/MIN (>=60); GLUCOSE, SERUM 101 MG/DL (60-99); SODIUM, SERUM 138 MMOL/L (135-148)
[2016-11-03] MEDS ORDERED: ASAB PO (15:39)
[2016-11-03] MEDS ORDERED: LIPITOR40 PO (15:39)
[2016-11-03] MEDS ORDERED: COREG3 PO (15:41)
[2016-11-03] MEDS ORDERED: HABIT21 TOP (15:42)
[2016-11-03] MEDS ORDERED: PROTONIX PO (15:44)
[2016-11-03] MEDS ORDERED: BRILINTA90 MG PO (15:44)
[2016-11-03] MEDS ORDERED: NTG150 SL (15:46)
== END 2016-11-03 18:17 | disposition home health service (06) | DRG 246 ==
LOC: ER 16:11 → SSU2 16:26 → CCU 17:23 → 6NO 10-30 20:46
PROVIDERS: Emergency Medicine; Internal Medicine Cardiovascular Disease; Internal Medicine Critical Care Medicine; Nurse Practitioner; Nurse Practitioner Family
PROC: 027135Z Dilation of Coronary Artery, Two Arteries with Two Drug-eluting Intraluminal Devices, Percutaneous Approach (ICD-10-PCS; principal; 2016-10-25)
PROC: B2151ZZ Fluoroscopy of Left Heart using Low Osmolar Contrast (ICD-10-PCS; 2016-10-25)
PROC: B2111ZZ Fluoroscopy of Multiple Coronary Arteries using Low Osmolar Contrast (ICD-10-PCS; 2016-10-25)
PROC: 4A023N7 Measurement of Cardiac Sampling and Pressure, Left Heart, Percutaneous Approach (ICD-10-PCS; 2016-10-25)
PROC: 5A1945Z Respiratory Ventilation, 24-96 Consecutive Hours (ICD-10-PCS; 2016-10-26)
PROC: 0BH17EZ Insertion of Endotracheal Airway into Trachea, Via Natural or Artificial Opening (ICD-10-PCS; 2016-10-26)
PROC: 02HV33Z Insertion of Infusion Device into Superior Vena Cava, Percutaneous Approach (ICD-10-PCS; 2016-10-26)
PROC: 30233N1 Transfusion of Nonautologous Red Blood Cells into Peripheral Vein, Percutaneous Approach (ICD-10-PCS; 2016-10-31)
DX: I21.09 ST elevation (STEMI) myocardial infarction involving other coronary artery of anterior wall (principal); J96.01 Acute respiratory failure with hypoxia; R57.0 Cardiogenic shock; I50.23 Acute on chronic systolic (congestive) heart failure; E87.1 Hypo-osmolality and hyponatremia; F05 Delirium due to known physiological condition; D62 Acute posthemorrhagic anemia; I13.0 Hypertensive heart and chronic kidney disease with heart failure and stage 1 through stage 4 chronic kidney disease, or unspecified chronic kidney disease; K92.1 Melena; I25.10 Atherosclerotic heart disease of native coronary artery without angina pectoris; F17.210 Nicotine dependence, cigarettes, uncomplicated; J44.9 Chronic obstructive pulmonary disease, unspecified; D72.829 Elevated white blood cell count, unspecified; N18.9 Chronic kidney disease, unspecified; I25.5 Ischemic cardiomyopathy; Z88.0 Allergy status to penicillin; Z79.82 Long term (current) use of aspirin
CPT/HCPCS: 31720; 36415; 36569; 36600; 70450; 70496; 70498; 71010; 71275; 74000; 80048; 80053; 80061; 82272; 82533; 82550; 82553; 82805; 82962; 83735; 84132; 84145; 84460; 84484; 85014; 85018; 85025; 85610; 85730; 86850; 86900; 86901; 86920; 87070; 87205; 87641; 93005; 93458; 94002; 94003; 94640; 94660; 94770; 97110-GP; 97116-GP; 97162-GP; 97166-GO; 97535-GO; 99152; 99153; 99285; A9270-GY; C1713; C1725; C1751; C1757; C1760; C1769; C1874; C1894; C8924; C8929; C9113; C9601; C9606; G8978-CM-GP; G8979-CL-GP; J0583; J1630; J2250; J2370; J2405; J2543; J3010; J3370; P9016; Q9957; Q9967

== ENCOUNTER 2016-12-22 14:55 | Inpatient (IN) | payer MEDICARE ==
--- NOTE | ~2016-12-22 | CN ---
Consultation Report [facility] [address] [place]. [address] NAME: ESTHER SOLIS : 43 STATUS : ADM IN [facility]#: [id number] AGE: 71 ADM/REG DATE : 12/22/16 MR#: [id number] REPORT SERV DATE: 12/23/16 DICTATED BY: MICHI SHETTY DATE: 12/23/16 REPORT STATUS : Draft TRANSCRIBED BY: MODRafa DATE: 12/23/16 GI CONSULTATION DATE OF CONSULTATION: 12/23/2016 HISTORY OF PRESENT ILLNESS: This is a 71-year-old gentleman whom I am consulted for GI bleed. The patient was in his usual state health until September when he was found to have a myocardial infarction and had two stents placed. He is placed on baby aspirin and Brilinta at that time. He did have evidently a respiratory arrest and had some maroon stools at that point, he was transfused up and discharged home only to have increasing problems with weakness and shortness of breath and was found to have a drop in his hemoglobin to 7.2. He does notice that he has had dark stools for several days. He denies any abdominal pain, any nausea or vomiting. He does have some difficulty initiating swallowing and has been more hoarse since being intubated. He has no history of peptic ulcer disease. PAST MEDICAL HISTORY: 1. Coronary artery disease, status post DE, status post stent as above. 2. No history of surgery. 3. History of tobacco abuse until two months ago. MEDICATIONS: Reviewed. ALLERGIES: PENICILLIN AND PROTONIX. SOCIAL HISTORY: The patient has not had alcohol for many years and he stopped tobacco two months ago. FAMILY HISTORY: Noncontributory. REVIEW OF SYSTEMS: The patient has had no other recent change in his bowel habits. No history of peptic ulcer disease. He has not had a screening colonoscopy. PHYSICAL EXAMINATION: GENERAL: The patient is an elderly white male, in no acute distress. LUNGS: Clear. CARDIOVASCULAR: Regular rate and rhythm. ABDOMEN: Soft without masses, hepatosplenomegaly. LABORATORY DATA: Shows white count 9000, hemoglobin 10.5, hematocrit 32.5. INR is 1.3. ASSESSMENT: The patient with acute onset of anemia and melanotic stools, suspect peptic ulcer disease on the base of aspirin use, cannot totally exclude a colonic lesion. Two recent myocardial infarction and stents. Consultation Report [facility] [address] [place]. [address] NAME: ESTHER SOLIS : [birth year] STATUS : ADM IN PAT#: [id number] AGE: 71 ADM/REG DATE : 12/22/16 MR#: [id number] REPORT SERV DATE: 12/23/16 DICTATED BY: MICHI SHETTY DATE: 12/23/16 REPORT STATUS : Draft TRANSCRIBED BY: SATURNINO DATE: 12/23/16 RECOMMENDATIONS: 1. We will start the patient on oral proton pump inhibitors. 2. We will schedule EGD in the morning. 3. We will consider colonoscopy if this is negative or try to do it possibly at a later date as the patient's daughter is quite concerned about putting him through any un- needed procedures at the present time. CLAY/SATURNINO Michi Shetty M.D. / [id number] CC: Tan Melchor MD
--- NOTE | ~2016-12-22 | EGD ---
EGD REPORT [facility] [address] [address] NAME: NICOLAS SOLIS : 43 STATUS : ADM IN PAT#: [id number] AGE: 71 ADM/REG DATE : 12/22/16 MR#: [id number] REPORT SERV DATE: 12/24/16 DICTATED BY: GERA SHETTY DATE: 12/24/16 REPORT STATUS : Draft [facility]ANSCRIBED BY: [facility] DATE: 12/24/16 End[facility] Center Patient Name: Nicolas Solis Date of : 1945 Attending MD: GERA SHETTY MD Procedure Date No Time: 12/24/2016 Procedure: Upper GI endoscopy Indications: Melena Referring MD: Gallo Hilton Medicines: Sedation Required Anesthesia Staff Assistance Complications: No immediate complications. Estimated blood loss: Minimal. Procedure: Pre-Anesthesia Assessment: - ASA Grade Assessment: III - A patient with severe systemic disease. After obtaining informed consent, the endoscope was passed under direct vision. Throughout the procedure, the patient's blood pressure, pulse, and oxygen saturations were monitored continuously. The GIF [id number] was introduced through the mouth, and advanced to the third part of duodenum. The upper GI endoscopy was accomplished without difficulty. The patient tolerated the procedure well. Findings: The examined esophagus was normal. Diffuse mildly erythematous mucosa without bleeding was found in the entire examined stomach. A small amount of a phytobezoar was found on the greater curvature of the stomach. One oozing superficial duodenal ulcer with adherent clot was found in the second part of the duodenum. The lesion was 3 mm in largest dimension. Coagulation for hemostasis using monopolar probe was successful. Estimated blood loss was minimal. Impression: - Normal esophagus. - Erythematous mucosa in the stomach. - A small amount of a phytobezoar in the stomach. - One duodenal ulcer oozing blood. Treated with thermal therapy. Recommendation: - Return patient to hospital [facility] for ongoing care. - Return to previous diet daily. - Use sucralfate tablets 1 gram PO BID daily. - No aspirin, ibuprofen, naproxen, or other EGD REPORT [address] [address] NAME: NICOLAS SOLIS : [birth year] STATUS : ADM IN [facility]#: [id number] AGE: 71 ADM/REG DATE : 12/22/16 MR#: [id number] REPORT SERV DATE: 12/24/16 DICTATED BY: GERA SHETTY. DATE: 12/24/16 REPORT STATUS : Draft TRANSCRIBED BY: [employer] DATE: 12/24/16 non-steroidal anti-inflammatory drugs. - Perform a colonoscopy (date not yet determined). Procedure Code(s): --- Professional --- 30953, Esophagogastroduodenoscopy, flexible, transoral; with control of bleeding, any method Diagnosis Code(s): --- Professional --- K26.4, Chronic or unspecified duodenal ulcer with hemorrhage K92.1, Melena CPT copyright 2013 [employer]. All rights reserved. The codes documented in this report are preliminary and upon production controller review may be revised to meet current compliance requirements. GERA SHETTY MD 12/24/2016 7:38 AM This report has been signed electronically. Number of Addenda: 0 Note Initiated On: 12/24/2016 6:59 AM Scope Withdrawal Time 0 hours 0 minutes 0 seconds [address] [place] [address]
--- NOTE | ~2016-12-22 | HP ---
History And Physical [facility] [address] [place]. [address] NAME: ESTHER SOLIS : [birth year] STATUS : ADM IN [facility]#: [id number] AGE: 71 ADM/REG DATE : 12/22/16 MR#: [id number] REPORT SERV DATE: 12/22/16 DICTATED BY: ELIZABETHMARE DATE: 12/22/16 REPORT STATUS : Draft TRANSCRIBED BY: MODRafa DATE: 12/22/16 DATE OF ADMISSION: 12/22/2016 HISTORY OF PRESENT ILLNESS: The patient is a 71-year-old male with a history of ST-elevation AR, status post PCI, heart failure with reduced EF, coronary artery disease, and tobacco use who was recently discharged from the hospital on 11/10/2016, after a very complicated hospitalization. The patient states that he had a routine doctor's appointment last week, at which time, blood work was performed. He states that he was called by the doctor's office stating that his hemoglobin was low and he needed to present to the emergency room. Upon presentation to the emergency room, preliminary workup noted a hemoglobin of 7.1. Of note, at the time of the patient's discharge his hemoglobin was noted to be 11 per discharge summary. Also, Hemoccult test was positive, and also the patient had a complaint of generalized weakness. Given these positive findings, the patient was admitted for further evaluation under Hospitalist Service. At the time of my evaluation, the patient corroborated the above story. He also stated that he did have melenic stools, however, did not note any bright red blood per rectum. He also reported generalized weakness. However, other than that, the patient states that he has been doing well and has been recuperating well from his last hospitalization. He denied any nausea, any vomiting. He denies any decreased p.o. intake. No fevers. No chills. No abdominal pain. No recent sick contacts. REVIEW OF SYSTEMS: 14-point review of system was performed. All systems were negative except as noted in the HPI. PAST MEDICAL HISTORY: Include, 1. ST elevation myocardial infarction. 2. Status post PCI. 3. Systolic heart failure. 4. Coronary artery disease. 5. Tobacco use. PAST SURGICAL HISTORY: Negative other than PCI. FAMILY HISTORY: Noncontributory. SOCIAL HISTORY: The patient denies any alcohol or illicit drug use. The patient states that status post his last admission he has quit smoking and is currently on the nicotine patch, which he reports compliance. ALLERGIES: THE PATIENT IS ALLERGIC TO PENICILLIN G AND PANTOPRAZOLE. PHYSICAL EXAMINATION: VITAL SIGNS: On presentation, blood pressure 116/67 with a pulse of 65, respiration 18, O2 saturation at 100% on room air, temperature 36.5 degrees Celsius (97.8 degrees Fahrenheit). GENERAL: The patient lying in bed, appears stated age, in no acute distress. Speaking in full sentences. History And Physical [address] [address] NAME: ESTHER SOLIS : [birth year] STATUS : ADM IN [facility]#: [id number] AGE: 71 ADM/REG DATE : 12/22/16 MR#: [id number] REPORT SERV DATE: 12/22/16 DICTATED BY: MARE JOHNSON DATE: 12/22/16 REPORT STATUS : Draft TRANSCRIBED BY: SATURNINO DATE: 12/22/16 HEENT: Normocephalic, atraumatic. Extraocular motors intact. Pupils round, reactive to light, and accommodation. Sclerae anicteric. Positive pallor noted. Oral mucosa moist. NECK: Trachea midline and symmetric. No JVD present. No thyromegaly noted. No lymphadenopathy noted. CHEST: Nontender to palpation. No scars present. CARDIOVASCULAR: Regular rate and rhythm. S1, S2. No murmurs, rubs, or gallops. LUNGS: Clear to auscultation bilaterally. No wheezes, rhonchi, rales. Normal respiratory effort. Equal chest expansion noted. ABDOMEN: Positive bowel sounds. Nontender. Nondistended. No masses palpated. Positive bowel sounds. EXTREMITIES: No cyanosis, no clubbing, no edema. NEUROLOGIC: Alert and oriented x3. No focal deficits appreciated. LABS: WBC 4.9, hemoglobin 7.1, hematocrit 23.1 with an MCV of 77.3, platelets 344. Sodium 141, potassium 4.1, chloride 105, bicarb 29, BUN 18, creatinine 1.03 with a GFR of 72, glucose 120. IMAGING: No imaging available. ASSESSMENT AND PLAN: 1. Upper gastrointestinal bleed. The patient reports melenic stools with no bright red blood per rectum. His Blatchford score is 7 placing him at I high risk and requiring acute intervention. Plan, we will type and cross and transfuse 2 units packed red blood cells. We will also obtain Gastroenterology consult. 2. Symptomatic anemia secondary to upper gastrointestinal bleed. MCV consistent with iron- deficiency anemia. We will obtain anemia panel and manage as #1 above. 3. Myocardial infarction, status post percutaneous coronary intervention. The patient currently on aspirin and ticagrelor, per management recommendations. The patient needs to be on antiplatelet therapy for at least one year given that we will not hold aspirin or ticagrelor in the setting of just bleed. 4. Coronary artery disease. His Atherosclerotic Cardiovascular Disease score is 16.8, high intensity statin indicated. The patient currently on appropriate therapy. We will continue high-intensity statin. 5. Code status. The patient wishes to be full code. 6. Deep venous thrombosis prophylaxis. SCDs due to contraindication. Greater than 50 minutes was spent on admission. PAULINE/SATURNINO Mare Johnson MD / [id number] History And Physical [address] [address] NAME: ESTHER SOLIS : 43 STATUS : ADM IN [facility]#: [id number] AGE: 71 ADM/REG DATE : 12/22/16 MR#: [id number] REPORT SERV DATE: 12/22/16 DICTATED BY: MARE JOHNSON DATE: 12/22/16 REPORT STATUS : Draft TRANSCRIBED BY: SATURNINO DATE: 12/22/16 CC: Mare Johnson MD
--- NOTE | ~2016-12-22 | DS ---
Discharge Summary [facility] [address] [place]. [address] NAME: ESTHER SOLIS : 43 STATUS : DIS IN PAT#: [id number] AGE: 71 ADM/REG DATE : 12/22/16 MR#: [id number] REPORT SERV DATE: 12/25/16 DICTATED BY: ELIZABETHMARE ESCOBAR DATE: 12/24/16 REPORT STATUS : Draft TRANSCRIBED BY: MODL DATE: 12/24/16 ADMISSION DATE: 12/22/2016 DISCHARGE DATE: 12/24/2016 The patient is a 71-year-old male with a history of ST-elevation TX status post PCI, heart failure with reduced EF, coronary artery disease, and tobacco abuse, who presented with a complaint of melenic stools and hemoglobin of 7.1 needing blood transfusion. For further details please refer to H and P dictated by ar on 12/22/2016. HOSPITAL COURSE: Upon presentation to the emergency room, the patient was noted to have hemoglobin of 7.1. Hemoccult was performed, which was positive. The patient was diagnosed with upper GI bleed and admitted under Hospitalist Service for further management. The patient was also diagnosed with symptomatic anemia and was given two units packed red blood cells with appropriate response. Given diagnosis of GI bleed, GI was consulted to assist in management. For further details please refer to a consultation note dictated by GI on 12/23/2016. The patient underwent an upper endoscopy on 10/25/2016, which noted aspirin- induced ulcers in the duodenum. However, given that the patient is status post TX with stent placement and Cardiology's instruction that under no circumstances should the patient be discontinued from aspirin and Brilinta, the patient was continued on both aspirin and Brilinta; however, sucralfate was added for GI protection as well as Pepcid. The patient has remained hemodynamically stable. His H and H's held stable status post trans effusion. Given completion of workup and resolution of presenting symptoms, the patient will be discharged home today. An appointment will be set up with Cardiology in the setting of these new findings for cardiology to determine if there is an alternative to aspirin or Cardiology to weigh in on his newly diagnosed duodenal ulcer secondary to aspirin. The plan has been discussed with the patient, who voices understanding and is agreeable with this plan. DISCHARGE DIAGNOSES: 1. Upper gastrointestinal bleed. 2. Symptomatic anemia. 3. Coronary artery disease. 4. History of myocardial infarction status post percutaneous coronary intervention. 5. Iron deficiency anemia. DISCHARGE PHYSICAL EXAMINATION: VITAL SIGNS: Blood pressure 117/64 with a pulse of 50, respirations 16, and O2 saturation 96% on room air. GENERAL: The patient lying in bed, eating breakfast, in no acute distress. Appears stated age. HEENT: Normocephalic and atraumatic. Extraocular motors intact. Moist oral mucosa. Pupils round and reactive to light and accommodation. Extraocular motors intact. Anicteric sclerae. No conjunctival injection. No pallor noted. NECK: Trachea midline and symmetric. No JVD. No thyromegaly. No lymphadenopathy is noted. CHEST: Nontender to palpation. No scars noted. CARDIOVASCULAR: Regular rate and rhythm. S1, S2. No murmurs, rubs, or gallops. LUNGS: Clear to auscultation bilaterally. No rhonchi, wheezes, or rales. Discharge Summary [address] [address] NAME: ESTHER SOLIS : 43 STATUS : DIS IN PAT#: [id number] AGE: 71 ADM/REG DATE : 12/22/16 MR#: [id number] REPORT SERV DATE: 12/25/16 DICTATED BY: MARE JOHNSON DATE: 12/24/16 REPORT STATUS : Draft TRANSCRIBED BY: SATURNINO DATE: 12/24/16 ABDOMEN: Positive bowel sounds. Nontender. Nondistended. No masses palpated. Positive bowel sounds. EXTREMITIES: No cyanosis, no clubbing, no edema. NEURO: Alert and oriented x3. No focal deficits appreciated. DISCHARGE MEDICATIONS: 1. Aspirin 81 mg p.o. daily. 2. Atorvastatin 40 mg p.o. daily. 3. Bumex 0.5 mg p.o. daily. 4. Carvedilol 3.125 mg p.o. twice a day. 5. Docusate 100 mg p.o. twice a day. 6. Famotidine 40 mg p.o. twice a day. 7. Ferrous sulfate 325 mg three times a day. 8. Lisinopril 0.25 mg p.o. daily. 9. Ticagrelor 90 mg p.o. twice a day. 10.Sucralfate 1 g p.o. twice a day. PROCEDURE: Upper endoscopy performed on 12/23/2016, please refer to EGD report noted in electronic records. DISPOSITION: The patient will be discharged home today to follow with primary care physician and Cardiology. ACTIVITY: As tolerated. DIET: Cardiac diet. Greater than 30 minutes were spent coordinating discharge, dictation of note, medication reconciliation, writing prescriptions, and providing counseling. PAULINE/SATURNINO Mare Johnson MD / [id number] CC: Mare Johnson MD
[2016-12-22 12:07] LABS: BASOPHILS 0.4 %; BASOPHILS ABSOLUTE 0.02 10/3/uL (0.0-0.16); EOSINOPHILS 0.6 %; EOSINOPHILS ABSOLUTE 0.03 10/3/uL (0.0-0.53); ER CBC TAT 0 Hrs 05 Mins; HEMATOCRIT 23.1 % (40.0-51.0); HEMOGLOBIN 7.1 g/dL (13.6-17.8); IMMATURE GRANULOCYTES 0.4 %; IMMATURE GRANULOCYTES ABSOLUTE 0.02 10/3/uL (0.0-0.11); LYMPHOCYTES 27.6 %; LYMPHOCYTES ABSOLUTE 1.35 10/3/uL (0.67-4.30); MANUAL DIFF NO %; MEAN CORPUS HGB CONC 30.7 g/dL (32.0-36.0); MEAN CORPUSCULAR HEMOGLOB 23.7 pg (26.0-34.0); MEAN CORPUSCULAR VOLUME 77.3 fL (80-100); MEAN PLATELET VOLUME 8.6 fL (9.2-13.0); MONOCYTES 9.8 %; MONOCYTES ABSOLUTE 0.48 10/3/uL (0.21-1.20); NEUTROPHILS 61.2 %; NEUTROPHILS ABSOLUTE 2.99 10/3/uL (2.02-8.40); PLATELET COUNT 344 10/3/uL (150-400); RBC DISTRIBUTION WIDTH 16.8 % (12.0-16.0); RED CELL COUNT 2.99 10/6/uL (4.7-6.1); WHITE BLOOD CELLS 4.9 10/3/uL (4.5-10.5)
[2016-12-22 12:14] LABS: INTERNATIONAL NORMAL RATI 1.3 UNITS (-); PARTIAL THROMBO TIME 32.2 SEC (22.5-37.2); PROTIME (NOT ORD) 16.4 SEC (12.0-14.5)
[2016-12-22 12:22] LABS: A/G RATIO 0.8 (0.7-1.9); ALBUMIN 3.4 G/DL (3.5-5.0); ALKALINE PHOSPHATASE 101 U/L (45-117); BUN (BLOOD UREA NITROGEN) 18 MG/DL (6-23); CALCIUM, SERUM 8.6 MG/DL (8.5-10.4); CHLORIDE, SERUM 105 MMOL/L (96-112); CO2 (CARBON DIOXIDE) 29 MMOL/L (24-34); CREATININE 1.03 MG/DL (0.70-1.30); GFR AFRICAN AMERICAN 84 ML/MIN (>=60); GFR NON AFRICAN AMERICAN 72 ML/MIN (>=60); GLOBULIN 4.1 G/DL (2.5-4.1); GLUCOSE, SERUM 120 MG/DL (60-99); POTASSIUM, SERUM 4.1 MMOL/L (3.5-5.3); SGOT(AST) 10 U/L (5-40); SGPT(ALT) 14 U/L (5-65); SODIUM, SERUM 141 MMOL/L (135-148); TOTAL BILIRUBIN 0.5 MG/DL (0-1.2); TOTAL PROTEIN 7.5 G/DL (6.0-8.5)
[~2016-12-22 14:55] MED LIST: *DENIES; ASAB PO; BRILINTA90 MG PO; COREG3 PO; HABIT21 TOP; LIPITOR40 PO; NTG150 SL; PROTONIX PO
[2016-12-22] MEDS ORDERED: ASAB PO (15:40)
[2016-12-22] MEDS ORDERED: COREG3 PO (15:40)
[2016-12-22] MEDS ORDERED: LIPITOR40 PO (15:40)
[2016-12-22] MEDS ORDERED: DSS PO (15:41)
[2016-12-22] MEDS ORDERED: NITROSTAT0.4 MG SL (15:41)
[2016-12-22] MEDS ORDERED: BRILINTA90 MG PO (15:41)
[2016-12-22] MEDS ORDERED: PRIN2.5 PO (15:43)
[2016-12-22] MEDS ORDERED: BUM5 PO (15:43)
[2016-12-22 17:53] LABS: RETICULOCYTE COUNT 2.3 % (0.5-2.9); RETICULOCYTE COUNT ABSOLUTE 70.9 10/3/uL (20.2-119.8)
[2016-12-22 18:23] LABS: % IRON SAT 5 % (20-50); FERRITIN 18 NG/ML (26-388); FOLATE 29.9 NG/ML (>5.2); IRON BINDING CAPACITY 341 MCG/DL (250-450); IRON, SERUM 18 MCG/DL (35-150)
[2016-12-23 06:50] LABS: BASOPHILS 0.3 %; BASOPHILS ABSOLUTE 0.03 10/3/uL (0.0-0.16); EOSINOPHILS 0.6 %; EOSINOPHILS ABSOLUTE 0.05 10/3/uL (0.0-0.53); IMMATURE GRANULOCYTES 0.2 %; IMMATURE GRANULOCYTES ABSOLUTE 0.02 10/3/uL (0.0-0.11); LYMPHOCYTES 23.1 %; LYMPHOCYTES ABSOLUTE 2.07 10/3/uL (0.67-4.30); MEAN CORPUSCULAR HEMOGLOB 25.3 pg (26.0-34.0); MEAN CORPUSCULAR VOLUME 78.3 fL (80-100); MEAN PLATELET VOLUME 8.8 fL (9.2-13.0); MONOCYTES 10.6 %; MONOCYTES ABSOLUTE 0.95 10/3/uL (0.21-1.20); NEUTROPHILS 65.2 %; NEUTROPHILS ABSOLUTE 5.85 10/3/uL (2.02-8.40); PLATELET COUNT 318 10/3/uL (150-400); RBC DISTRIBUTION WIDTH 16.4 % (12.0-16.0)
[2016-12-23 06:52] LABS: HEMATOCRIT 32.5 % (40.0-51.0); HEMOGLOBIN 10.5 g/dL (13.6-17.8); MEAN CORPUS HGB CONC 32.3 g/dL (32.0-36.0); RED CELL COUNT 4.15 10/6/uL (4.7-6.1)
[2016-12-23 06:53] LABS: MANUAL DIFF NO %
[2016-12-23 06:55] LABS: A/G RATIO 0.8 (0.7-1.9); ALBUMIN 3.3 G/DL (3.5-5.0); ALKALINE PHOSPHATASE 99 U/L (45-117); BUN (BLOOD UREA NITROGEN) 17 MG/DL (6-23); CALCIUM, SERUM 8.7 MG/DL (8.5-10.4); CHLORIDE, SERUM 105 MMOL/L (96-112); CO2 (CARBON DIOXIDE) 25 MMOL/L (24-34); CREATININE 1.08 MG/DL (0.70-1.30); GFR AFRICAN AMERICAN 79 ML/MIN (>=60); GFR NON AFRICAN AMERICAN 68 ML/MIN (>=60); GLOBULIN 4.4 G/DL (2.5-4.1); SGOT(AST) 11 U/L (5-40); SGPT(ALT) 14 U/L (5-65); SODIUM, SERUM 139 MMOL/L (135-148); TOTAL PROTEIN 7.7 G/DL (6.0-8.5)
[2016-12-23 06:56] LABS: GLUCOSE, SERUM 92 MG/DL (60-99); TOTAL BILIRUBIN 2.6 MG/DL (0-1.2)
[2016-12-24 06:02] LABS: BASOPHILS 0.5 %; BASOPHILS ABSOLUTE 0.04 10/3/uL (0.0-0.16); EOSINOPHILS 0.8 %; EOSINOPHILS ABSOLUTE 0.06 10/3/uL (0.0-0.53); HEMATOCRIT 32.1 % (40.0-51.0); HEMOGLOBIN 10.4 g/dL (13.6-17.8); IMMATURE GRANULOCYTES 0.3 %; IMMATURE GRANULOCYTES ABSOLUTE 0.02 10/3/uL (0.0-0.11); LYMPHOCYTES 37.2 %; LYMPHOCYTES ABSOLUTE 2.91 10/3/uL (0.67-4.30); MEAN CORPUS HGB CONC 32.4 g/dL (32.0-36.0); MEAN CORPUSCULAR HEMOGLOB 25.4 pg (26.0-34.0); MEAN CORPUSCULAR VOLUME 78.3 fL (80-100); MEAN PLATELET VOLUME 8.7 fL (9.2-13.0); MONOCYTES 18.5 %; MONOCYTES ABSOLUTE 1.45 10/3/uL (0.21-1.20); NEUTROPHILS 42.7 %; NEUTROPHILS ABSOLUTE 3.35 10/3/uL (2.02-8.40); PLATELET COUNT 314 10/3/uL (150-400); RBC DISTRIBUTION WIDTH 17.1 % (12.0-16.0); WHITE BLOOD CELLS 7.8 10/3/uL (4.5-10.5)
[2016-12-24 06:03] LABS: MANUAL DIFF NO %
[2016-12-24 06:16] LABS: A/G RATIO 0.7 (0.7-1.9); ALBUMIN 3.1 G/DL (3.5-5.0); ALKALINE PHOSPHATASE 92 U/L (45-117); BUN (BLOOD UREA NITROGEN) 16 MG/DL (6-23); CALCIUM, SERUM 8.9 MG/DL (8.5-10.4); CHLORIDE, SERUM 104 MMOL/L (96-112); CO2 (CARBON DIOXIDE) 26 MMOL/L (24-34); CREATININE 1.12 MG/DL (0.70-1.30); GFR AFRICAN AMERICAN 76 ML/MIN (>=60); GFR NON AFRICAN AMERICAN 65 ML/MIN (>=60); GLOBULIN 4.3 G/DL (2.5-4.1); GLUCOSE, SERUM 107 MG/DL (60-99); POTASSIUM, SERUM 3.7 MMOL/L (3.5-5.3); SGOT(AST) 10 U/L (5-40); SGPT(ALT) 14 U/L (5-65); SODIUM, SERUM 138 MMOL/L (135-148); TOTAL BILIRUBIN 0.7 MG/DL (0-1.2); TOTAL PROTEIN 7.4 G/DL (6.0-8.5)
[2016-12-24] MEDS ORDERED: PEP20 PO (12:58)
[2016-12-24] MEDS ORDERED: FERROUS SULF325 M1 PO (12:59)
[2016-12-24] MEDS ORDERED: SUCR PO (12:59)
== END 2016-12-24 16:21 | disposition home or self-care (01) | DRG 378 ==
LOC: ER 14:55 → 7NO 15:26
PROVIDERS: Emergency Medicine; Hospitalist; Internal Medicine Gastroenterology
PROC: 0DJ08ZZ Inspection of Upper Intestinal Tract, Via Natural or Artificial Opening Endoscopic (ICD-10-PCS; principal; 2016-12-24 07:16)
DX: K26.4 Chronic or unspecified duodenal ulcer with hemorrhage (principal); I50.22 Chronic systolic (congestive) heart failure; I25.10 Atherosclerotic heart disease of native coronary artery without angina pectoris; I25.2 Old myocardial infarction; Z95.5 Presence of coronary angioplasty implant and graft; D50.9 Iron deficiency anemia, unspecified; Z79.82 Long term (current) use of aspirin
CPT/HCPCS: 36415; 80053; 82607; 82728; 82746; 82784; 83516; 83540; 83550; 85025; 85045; 85610; 85730; 86850; 86900; 86901; 86920; 93005; 96374; 99285; A9270-GY; C9113; P9016